=== PATIENT | female | born 2000 | race Two or more races ===

== ENCOUNTER 2022-10-23 21:27 | Emergency (ER) | payer OTHER, SELFPAY ==
[2022-10-23 21:42] VITALS: BP 104/69; PULSE 79; RESP 16; O2SAT 99; BMI 24.7
[2022-10-23 22:21] LABS: Bilirubin Urine NEGATIVE (NEGATIVE); Blood Urine NEGATIVE (NEGATIVE); Clarity Urine CLEAR (CLEAR); Color Urine LT. YELLOW (YELLOW); Glucose Urine UA NEGATIVE (NEGATIVE); Ketones Urine NEGATIVE (NEGATIVE); Leukocyte Esterase Urine TRACE (NEGATIVE); Nitrite Urine NEGATIVE (NEGATIVE); Protein Urine NEGATIVE (NEG/TRACE); Specific Gravity Urine 1.015 (1.005-1.025)
[2022-10-23 22:25] LABS: Urine Microscopic Indicated YES
[2022-10-23 22:30] LABS: Bacteria Urine TRACE #/HPF (NONE SEEN); Cast Seen? NONE SEEN #/LPF (NONE SEEN); Crystals Seen? None Seen #/HPF (None Seen); Mucus Urine SMALL (NONE SEEN); RBC Urine 0-2 #/HPF (0-2); Squamous Epithelial Cell Urine MANY #/LPF (NONE/RARE); Urine Culture Indicated NO
--- NOTE | 2022-10-24 00:23 | ED.GENADUL1 ---
HPI - General Adult General Chief complaint: Back Pain/Injury Stated complaint: adbominal Pain Back Pain Time Seen by Provider: 10/23/22 22:29 History of Present Illness HPI narrative: This 22-year-old female with no significant medical history who does not smoke presents for evaluation of bilateral upper mid flank pain. The patient states that her last menstrual period was in early August. She recently found out that she was . She has been having episodes of morning sickness with nausea and vomiting. This has not been excessive and she states that she is able to keep down liquids. She denies any lower abdominal pain and vaginal bleeding, vaginal discharge or odor or itching. She has not been seen by an [facility] DR[facility] yet but has made an appointment with [facility]. She has not had any fever or cough. She has no lower extremity pain or swelling. She has not taken any medications for her discomfort because she does not know what to take in . She states she has been urinating frequently and it has a strong odor but she has no dysuria or hematuria. Related Data Home Medications Medication Instructions Recorded Confirmed No Known Home Medications 10/23/22 10/23/22 Allergies Allergy/AdvReac Type Severity Reaction Status Date / Time No Known Drug Allergies Allergy Verified 10/23/22 21:47 Review of Systems ROS Status of ROS 10 or more systems reviewed and unremarkable except as noted in history and below [facility] Social History Smoking status: Never smoker Exam Narrative Exam Narrative: Nurses note and vital signs reviewed and patient is not hypoxic. General: The patient appears well and in no apparent distress. Patient is resting comfortably on cart. No active vomiting noted Skin: Warm, dry, no pallor noted. There is no rash noted. Head: Normocephalic, atraumatic Eye: Normal conjunctiva, no drainage, EOMI. PERRL Ears, Nose, Mouth, and Throat: oral mucosa is moist. Cardiovascular: Regular Rate and Rhythm S1 S2, no murmurs rubs or gallops, pulses are brisk and equal bilaterally Respiratory: Patient is in no distress, no accessory muscle use, lungs are clear to auscultation, no wheezing, rales or rhonchi Back: non-tender, no CVA tenderness bilaterally to percussion. GI: Soft, nondistended, no reproducible tenderness, there is no tenderness in the area on the lateral flanks for the patient is complaining of pain. Musculoskeletal: The patient has no evidence of calf tenderness, no pitting edema, symmetrical pulses noted bilaterally, No CVA tenderness Neurological: A&O x4, normal speech Psychiatric: Cooperative Constitutional Vital Signs, click to edit/add: Last Vital Signs Pulse 79 10/23/22 21:42 Resp 16 10/23/22 21:42 BP 104/69 10/23/22 21:42 Pulse Ox 99 10/23/22 21:42 O2 Del Method Room Air 10/23/22 21:42 Course Vital Signs Vital signs: Vital Signs Pulse Rate 79 10/23/22 21:42 Respiratory Rate 16 10/23/22 21:42 Blood Pressure 104/69 10/23/22 21:42 Pulse Oximetry 99 10/23/22 21:42 Oxygen Delivery Method Room Air 10/23/22 21:42 Pulse Rate 79 10/23/22 21:42 Respiratory Rate 16 10/23/22 21:42 Blood Pressure 104/69 10/23/22 21:42 Pulse Oximetry 99 10/23/22 21:42 Oxygen Delivery Method Room Air 10/23/22 21:42 Medical Decision Making [facility] Narrative Medical decision making narrative: This 22-year-old female who recently found out she was after having her last month's period in early August presents for evaluation of bilateral mid flank pain. She has been having several episodes of vomiting as a daily basis. She otherwise has no lower abdominal pain, no vaginal bleeding, she has no diarrhea or flank pain. She was not sure what was safe taken her . She was medicated with Tylenol and given a prescription for Tylenol and Zofran to use for her pain and morning sickness. She was encouraged to drink plenty of fluids. Urinalysis was contaminated but did not show any sign of severe infection. She was encouraged to keep her appointment with outpatient [facility] and return to emergency department for lower abdominal pain, vaginal bleeding, dizziness, inability to keep fluids down or any concerns. Lab Data Labs: Lab Results 10/23/22 Range/Units 22:10 Urine Color Lt. yellow (YELLOW) Urine Clarity Clear (CLEAR) Urine pH 7.0 (5.0-9.0) Ur Specific [place] 1.015 (1.005-1.025) Urine Protein Negative (NEG/TRACE) mg/dL Urine Glucose (UA) Negative (NEGATIVE) mg/dL Urine Ketones Negative (NEGATIVE) mg/dL Urine Occult Blood Negative (NEGATIVE) Urine Nitrite Negative (NEGATIVE) Urine Bilirubin Negative (NEGATIVE) Urine Urobilinogen 2.0 A (0.2-1.0) EU/dL Ur Leukocyte Esterase Trace A (NEGATIVE) Urine RBC 0-2 (0-2) #/HPF Urine WBC 2-5 A (NONE SEEN) #/HPF Ur Squamous Epith Cells Many A (NONE/RARE) #/LPF Urine Crystals None seen (None Seen) #/HPF Urine Bacteria Trace A (NONE SEEN) #/HPF Urine Casts None seen (NONE SEEN) #/LPF Urine Mucus Small A (NONE SEEN) Ur Culture Indicated? No Discharge Plan Discharge Chief Complaint: Back Pain/Injury Clinical Impression: First trimester , Morning sickness, Strain of abdominal wall Patient Disposition: Home, Self-Care Prescriptions / Home Meds: No Action No Known Home Medications Instructions: Hyperemesis Gravidarum (ED), Muscle Strain (ED), at 7 to 10 Weeks (ED) Additional Instructions: Drink plenty of fluids, use Tylenol as needed for pain, use Zofran as needed for symptoms of morning sickness. Follow up closely with her LOCAL [facility]IVER. Return to the emergency department for generalized abdominal pain, heavy vaginal bleeding or any concerns. Stand Alone Forms: Portal Instructions Referrals: Physician,Non-Staff, MD [Primary Care Provider] - 1 week Discharge Date/Time: 10/23/22 23:21
== END 2022-10-23 23:21 | disposition home or self-care (01) ==
PROVIDERS: Emergency Provider Emergency Medicine
DX: O21.0 Mild hyperemesis gravidarum (principal); S39.011A Strain of muscle, fascia and tendon of abdomen, initial encounter; O9A.211 Injury, poisoning and certain other consequences of external causes complicating pregnancy, first trimester; X58.XXXA Exposure to other specified factors, initial encounter; Z3A.00 Weeks of gestation of pregnancy not specified; Z3A.01 Less than 8 weeks gestation of pregnancy
CPT/HCPCS: 81001; 81003; 99283